=== PATIENT | male | born 1965 | race Caucasian/White ===

== ENCOUNTER 2016-08-26 15:40 | Emergency (ER) | payer OTHER ==
[~2016-08-26] VITALS: Ht 185.4 cm; Wt 94.2 kg
[~2016-08-26 15:40] MED LIST: ALLO300T2 PO; AUGM875T PO; CORT1SOL RIGHT EAR; LEVO.075 PO; PERC7.5T13 PO; XARE20TA PO
[2016-08-26 15:48] VITALS: BP 125/67; PULSE 57; RESP 18; TEMP 97.9; O2SAT 96
--- NOTE | 2016-08-26 16:40 | PD ---
HPI . hives Chief Complaint: Skin Problem Time Seen by Provider: 16:39 Travel History International Travel<30 days: No Contact w/Intl Traveler<30days: No Traveled to known affect area: No History of Present Illness HPI 50-year-old male with no significant past medical history here with complaints of a rash to hi buttocks and groin. Patient says that he was treated about 2 and half weeks ago in urgent care until he had hives. He was given a Medrol Dosepak, Pepcid and antihistamines, which cleared up all of his issues. He says now the rash is back. He does admit to running frequently and the rash matches the distribution of his running shorts, which are very tight. He denies any shortness of breath or angioedema. He has no other complaints. He has not changed hygiene products. PFSH Past Medical History Hx Anticoagulant Therapy: Yes Diminished Hearing: No Gout: Yes Thyroid Disease: Yes Social History Alcohol Use: No Tobacco Use: No Substance Use: No Allergies-Medications (Allergen,Severity, Reaction): Coded Allergies: No Known Allergies (Unverified , 08/26/16) Reported Meds & Prescriptions Reported Meds & Active Scripts Active Reported Synthroid (Levothyroxine Sodium) 75 Mcg Tab 75 Mcg PO DAILY Allopurinol 300 Mg Tab 300 Mg PO DAILY Xarelto (Rivaroxaban) 20 Mg Tab 20 Mg PO DAILY Review of Systems General / Constitutional: No: Fever Eyes: No: Visual changes HENT: No: Headaches Cardiovascular: No: Chest Pain or Discomfort Respiratory: No: Shortness of Breath Gastrointestinal: No: Abdominal Pain Genitourinary: No: Dysuria Musculoskeletal: No: Pain Skin: Positive Itching, Positive Hives Neurologic: No: Weakness Psychiatric: No: Depression Endocrine: No: Polydipsia Hematologic/Lymphatic: No: Easy Bruising Physical Exam Narrative GENERAL: AAO x 3, no acute distress, Well-nourished, well-developed patient. SKIN: Warm and dry. Hives localized to buttocks and groin. There is one small lesion on lower hip. No blisters, pustules or papules. Alex upon palpation. HEAD: Normocephalic and atraumatic. EYES: No scleral icterus. No injection or drainage. ENT: No nasal drainage noted. Mucous membranes pink. Airway patent. NECK: Supple, trachea midline. No JVD. CARDIOVASCULAR: Regular rate and rhythm without murmurs, gallops, or rubs. RESPIRATORY: Breath sounds equal bilaterally. No accessory muscle use. No rhonchi or rales. GASTROINTESTINAL: Abdomen soft, non-tender, nondistended. EXTREMITIES: No cyanosis or edema. BACK: Nontender without obvious deformity. No CVA tenderness. PSYCH: AAO x 3, normal affect. Data Data Last Documented VS Vital Signs Date Time Temp Pulse Resp B/P Pulse Ox O2 Delivery O2 Flow Rate FiO2 08/26/16 15:48 97.9 57 18 125/67 96 MDM Medical Decision Making Medical Screen Exam Complete: Yes Emergency Medical Condition: Yes Medical Record Reviewed: Yes Differential Diagnosis hives, urticaria, contact dermatitis Narrative Course 50-year-old male with no significant past medical history here with complaints of a rash to hi buttocks and groin. Patient says that he was treated about 2 and half weeks ago in urgent care until he had hives. He was given a Medrol Dosepak, Pepcid and antihistamines, which cleared up all of his issues. He says now the rash is back. He does admit to running frequently and the rash matches the distribution of his running shorts, which are very tight. He denies any shortness of breath or angioedema. He has no other complaints. He has not changed hygiene products. Patient seen and examined. He does appear to have a very mild urticarial rash to his buttocks and groin. I believe this is likely related to the tight fitting running shorts he is wearing. It is possible that his laundry detergent may be causing his issues. I've advised him to switch to free and clear products, try mild soaps and lotion. He did not like his steroids that were prescribed to him at the urgent care and tells me that they messed his stomach up. He is requesting a lower dosing. I've opted to prednisone 10 mg for 5 days. He can continue to use [id number] antihistamines. I advised him to follow-up with an digital media representative for further skin testing to see what may be causing his rash. Patient verbalized understanding of instructions, questions were answered, and thanked me for their care. I advised them if their condition worsens, please return to the nearest emergency room for further care. Diagnosis Primary Impression: Contact dermatitis Qualified Code: L23.9 - Allergic contact dermatitis, unspecified trigger Patient Instructions: General Instructions Additional Instructions: Please return to emergency department if your symptoms return or worsen. Follow up with your primary care provider. Take medications as prescribed. Follow-up as an digital media representative for further testing. Med/Other Pt SpecificInfo: Prescription(s) given Scripts Prednisone 10 Mg Tab10 Mg PO DAILY #5 TAB Ref 0 Prov:Ramandeep Rebolledo MD 08/26/16 Disposition: 01 DISCHARGE HOME Condition: Stable Tere Galvan Aug 26, 2016 16:40
[2016-08-26] MEDS ORDERED: PRED10 PO (16:47)
== END 2016-08-26 16:57 | disposition home or self-care (01) ==
LOC: PHED 15:40 → PHEFT 16:57
DX: L23.9 Allergic contact dermatitis, unspecified cause (principal); E07.9 Disorder of thyroid, unspecified; Z79.01 Long term (current) use of anticoagulants; Z87.39 Personal history of other diseases of the musculoskeletal system and connective tissue
CPT/HCPCS: 99282